=== PATIENT | male | born 1960 | race African-American/Black ===

== ENCOUNTER 2023-05-23 21:31 | Emergency (ER) | payer MEDICAID ==
[~2023-05-23] VITALS: Ht 180.3 cm; Wt 117.9 kg
[2023-05-23 21:31] VITALS: BP 138/90; PULSE 79; RESP 18; TEMP 97.8; O2SAT 100
[2023-05-23] MEDS ORDERED: ACETAMINOPHEN EXTRA STRENGTH 500 MG TAB PO ONE (21:45)
[2023-05-23] MEDS ORDERED: KETOROLAC 30 MG/ML VIAL IVP ONE (21:45)
== END 2023-05-24 00:50 | disposition home or self-care (01) ==
LOC: MED 21:31
DX: G89.29 Other chronic pain (principal); M54.50 Low back pain, unspecified; M25.511 Pain in right shoulder; M25.512 Pain in left shoulder; R60.0 Localized edema; M25.571 Pain in right ankle and joints of right foot; M25.572 Pain in left ankle and joints of left foot; R20.0 Anesthesia of skin; R20.2 Paresthesia of skin; E11.9 Type 2 diabetes mellitus without complications; I50.9 Heart failure, unspecified; M19.90 Unspecified osteoarthritis, unspecified site; F14.90 Cocaine use, unspecified, uncomplicated; Z86.718 Personal history of other venous thrombosis and embolism
CPT/HCPCS: 71045; 93970; 99284; J1885